=== PATIENT | male | born 1990 | race Two or more races ===

== ENCOUNTER 2023-08-04 20:23 | Inpatient (IN) | payer OTHER ==
[~2023-08-04] VITALS: Ht 190.5 cm; Wt 133.2 kg
[2023-08-04 21:41] LABS: BASOPHILS % (AUTO) 0.8 % (0.0-2.0); HEMATOCRIT 45.6 % (41-53); HEMOGLOBIN 15.1 g/dL (13.5-17.5); LYMPHOCYTES # (AUTO) 3.1 K/uL (1.0-4.8); LYMPHOCYTES % (AUTO) 27.7 % (22.0-44.0); MEAN CORPUSCULAR HEMOGLOBIN 28.8 pg (26.0-34.0); MEAN CORPUSCULAR HGB CONC 33.1 G/dL (31.0-37.0); MEAN CORPUSCULAR VOLUME 87 fL (80-100); MONOCYTES # (AUTO) 0.8 K/uL (0.1-1.0); MONOCYTES % (AUTO) 7.3 % (2.0-9.0); NEUTROPHILS % (AUTO) 63.2 % (40.0-70.0); PLATELET COUNT (AUTO) 273 K/uL (150-450); RED BLOOD CELL COUNT(AUTO) 5.24 MIL/uL (4.50-5.90); RED CELL DISTRIBUTION WIDTH 12.9 % (11.5-14.5); WHITE BLOOD COUNT (AUTO) 11.2 K/uL (4.5-11.0)
[2023-08-04 21:49] LABS: ANION GAP 10 mmol/L (8-16); CARBON DIOXIDE 28 mmol/L (22-29); CHLORIDE 99 mmol/L (98-107); CREATININE 0.86 mg/dL (0.60-1.30); GLOMERULAR FILTR. RATE CALC > 60 mL/min (>60); GLUCOSE,RANDOM 380 mg/dL (70-110); SODIUM SERUM 137 mmol/L (136-145); UREA NITROGEN, BLOOD 12 mg/dL (7-18)
[2023-08-04] MEDS: SODIUM CHLORIDE 0.9% 1,000 ML IV ONE (21:52)
[2023-08-04 21:55] LABS: ALANINE AMINOTRANSFERASE 48 U/L (12-78); ALBUMIN 3.6 g/dL (3.4-5.0); ALKALINE PHOSPHATASE 99 U/L (46-116); ASPARTATE AMINOTRANSFERASE 15 U/L (15-37); BILIRUBIN,TOTAL 0.2 mg/dL (0.1-1.0); TOTAL PROTEIN, SERUM 7.1 g/dL (6.4-8.2)
[2023-08-04 22:00] LABS: APPEARANCE,URINE CLEAR (CLEAR); BILIRUBIN,URINE NEGATIVE (NEGATIVE); COLOR,URINE COLORLESS (YELLOW); GLUCOSE, URINE (UA) >=1000 mg/dL (NEGATIVE); KETONES,URINE NEGATIVE (NEGATIVE); LEUKOCYTE ESTERASE ,URINE NEGATIVE (NEGATIVE); NITRATE,URINE NEGATIVE (NEGATIVE); OCCULT BLOOD,URINE NEGATIVE (NEGATIVE); PH,URINE 6.5 (5.0-8.0); PROTEIN,URINE NEGATIVE (NEGATIVE); SPECIFIC GRAVITIY, URINE 1.033 (1.003-1.030); UROBILINOGEN,URINE <=1.0 mg/dL (<=1.0)
[2023-08-04 22:28] LABS: CALCIUM, TOTAL 9.2 mg/dL (8.8-10.5)
[2023-08-04 22:50] LABS: BACTERIA,URINE None Seen /HPF (None Seen); RBC,URINE None Seen /HPF (0-2); SQUAMOUS EPITHELIAL CELL,UR None Seen /LPF (None Seen); WBC,URINE None Seen /HPF (0-5)
[2023-08-04 23:26] LABS: GLUCOMETER DEV NAME(LOC) ERT.5; GLUCOSE,POINT OF CARE 357 MG/DL (70-110)
[2023-08-04] MEDS ORDERED: ACETAMINOPHEN 325 MG TABLET PO PRN (23:30)
[2023-08-04] MEDS ORDERED: ONDANSETRON HCL 4 MG/2 ML VIAL IVP PRN ×2 (23:30→23:45)
[2023-08-04] MEDS ORDERED: 0.9% SODIUM CHLORIDE 10 ML SYRINGE IVP PRN (23:30)
[2023-08-04] MEDS ORDERED: HYDROCODONE/ACETAMINOPHEN 5-325 MG TABLET PO PRN (23:45)
[2023-08-04] MEDS ORDERED: MORPHINE SULFATE 2 MG/ML SYRINGE IVP PRN (23:45)
[2023-08-04] MEDS ORDERED: ZOLPIDEM TARTRATE 5 MG TABLET PO PRN (23:45)
[2023-08-04] MEDS ORDERED: BISACODYL 10 MG RECTAL RECTAL SUPPOSITORY PR PRN (23:45)
[2023-08-04] MEDS ORDERED: MAGNESIUM HYDROXIDE SUSPENSION 30 ML UDCUP PO PRN (23:45)
[2023-08-04] MEDS ORDERED: IPRATROPIUM BROMIDE 0.5 MG/2.5 ML NEB SOLUTION NEB PRN (23:45)
[2023-08-04] MEDS ORDERED: ALBUTEROL SULFATE 2.5 MG/0.5 ML NEB SOLUTION NEB PRN (23:45)
[2023-08-04] MEDS ORDERED: DEXTROSE 50%-WATER 25 GM/50 ML SYRINGE IVP PRN ×2 (23:45)
[2023-08-04] MEDS: INSULIN REGULAR, HUMAN 100 UNITS/ML SQ ONE (23:47)
[2023-08-04 23:53] LABS: COVID AG,FIA SOURCE NASAL SWAB
[2023-08-04] MEDS: LISINOPRIL 10 MG TABLET PO ONE (23:59)
[2023-08-05] MEDS: HEPARIN SODIUM,PORCINE 5,000 UNITS/ML VIAL SQ SCH
[2023-08-05 01:30] LABS: SARS-COV2 (COVID) ANTIGEN,FIA Negative (Negative)
[2023-08-05 01:38] VITALS: BP 143/80; PULSE 67; RESP 20; TEMP 97.9
[2023-08-05] MEDS: INSULIN LISPRO 100 UNITS/ML SQ PRN ×2 (06:02→18:28)
[2023-08-05 06:41] LABS: GLUCOMETER DEV NAME(LOC) ERT.5; GLUCOSE,POINT OF CARE 243 MG/DL (70-110)
[2023-08-05 06:50] LABS: BASOPHILS % (AUTO) 0.4 % (0.0-2.0); EOSINOPHILS % (AUTO) 1.4 % (1.0-6.0); HEMOGLOBIN 14.4 g/dL (13.5-17.5); LYMPHOCYTES # (AUTO) 2.7 K/uL (1.0-4.8); MEAN CORPUSCULAR HEMOGLOBIN 29.1 pg (26.0-34.0); MEAN CORPUSCULAR HGB CONC 33.6 G/dL (31.0-37.0); MEAN CORPUSCULAR VOLUME 87 fL (80-100); MONOCYTES # (AUTO) 0.7 K/uL (0.1-1.0); MONOCYTES % (AUTO) 6.5 % (2.0-9.0); NEUTROPHILS # (AUTO) 6.9 K/uL (1.8-7.7); NEUTROPHILS % (AUTO) 65.7 % (40.0-70.0); PLATELET COUNT (AUTO) 247 K/uL (150-450); RED BLOOD CELL COUNT(AUTO) 4.96 MIL/uL (4.50-5.90); RED CELL DISTRIBUTION WIDTH 12.6 % (11.5-14.5); WHITE BLOOD COUNT (AUTO) 10.5 K/uL (4.5-11.0)
[2023-08-05 07:40] LABS: ALANINE AMINOTRANSFERASE 44 U/L (12-78); ALBUMIN 3.3 g/dL (3.4-5.0); ALKALINE PHOSPHATASE 78 U/L (46-116); ANION GAP 11 mmol/L (8-16); ASPARTATE AMINOTRANSFERASE 17 U/L (15-37); BILIRUBIN,TOTAL 0.4 mg/dL (0.1-1.0); CALCIUM, TOTAL 8.9 mg/dL (8.8-10.5); CARBON DIOXIDE 27 mmol/L (22-29); CHLORIDE 102 mmol/L (98-107); CREATININE 0.68 mg/dL (0.60-1.30); GLOMERULAR FILTR. RATE CALC > 60 mL/min (>60); GLUCOSE,RANDOM 221 mg/dL (70-110); POTASSIUM 3.9 mmol/L (3.5-5.1); SODIUM SERUM 140 mmol/L (136-145); TOTAL PROTEIN, SERUM 6.5 g/dL (6.4-8.2); UREA NITROGEN, BLOOD 11 mg/dL (7-18)
[2023-08-05 08:08] VITALS: BP 137/83; PULSE 73; RESP 18; TEMP 98.1
[2023-08-05] MEDS: MetFORMIN HCL 500 MG TABLET PO SCH (08:41)
[2023-08-05] MEDS: PANTOPRAZOLE SODIUM 40 MG DR TABLET PO SCH (08:41)
[2023-08-05] MEDS: LISINOPRIL 10 MG TABLET PO SCH (08:42)
[2023-08-05] MEDS: ACETAMINOPHEN 325 MG TABLET PO PRN (16:50)
[2023-08-05 17:32] LABS: GLUCOMETER DEV NAME(LOC) 4E.2; GLUCOSE,POINT OF CARE 289 MG/DL (70-110)
[2023-08-05 20:16] VITALS: BP 127/70; PULSE 74; RESP 20; TEMP 97.5
[2023-08-05 21:01] LABS: GLUCOMETER DEV NAME(LOC) 6S.2; GLUCOSE,POINT OF CARE 205 MG/DL (70-110)
[2023-08-06 04:16] VITALS: BP 118/70; PULSE 66; RESP 18; TEMP 97.7
[2023-08-06 05:36] LABS: GLUCOMETER DEV NAME(LOC) 6N.2B; GLUCOSE,POINT OF CARE 203 MG/DL (70-110)
[2023-08-06 05:36] LABS: GLUCOMETER DEV NAME(LOC) 6N.2B; GLUCOSE,POINT OF CARE 241 MG/DL (70-110)
[2023-08-06] MEDS: GlipiZIDE 5 MG TABLET PO SCH (06:12)
[2023-08-06 08:10] LABS: GLUCOMETER DEV NAME(LOC) 6N.2B; GLUCOSE,POINT OF CARE 193 MG/DL (70-110)
[2023-08-06 08:32] VITALS: BP 137/84; PULSE 76; RESP 20; TEMP 98.3
[2023-08-06] MEDS ORDERED: GLIP5TAB16 PO (11:44)
[2023-08-06] MEDS ORDERED: LISI-894 PO (11:45)
[2023-08-06] MEDS ORDERED: METF-1211 PO (11:46)
[2023-08-06 13:42] LABS: GLUCOMETER DEV NAME(LOC) 4E.2; GLUCOSE,POINT OF CARE 160 MG/DL (70-110)
== END 2023-08-06 14:14 | DRG 639 ==
LOC: EMS 20:24 → 6S 08-05 00:53
PROVIDERS: ADMIT Hospitalist; ATTEND Hospitalist
DX: E11.65 Type 2 diabetes mellitus with hyperglycemia (principal); I10 Essential (primary) hypertension; F17.200 Nicotine dependence, unspecified, uncomplicated; E66.9 Obesity, unspecified; Z68.36 Body mass index [BMI] 36.0-36.9, adult; Z20.822 Contact with and (suspected) exposure to COVID-19
CPT/HCPCS: 80053; 81001; 82009; 82010; 82962; 83036; 85025; 99285; J1644; 36415-L1; 36415-TC